=== PATIENT | female | born 1930 | race Caucasian/White ===

== ENCOUNTER 2018-08-21 14:40 | Outpatient (CLI) | payer MEDICARE, BC ==
[~2018-08-21] VITALS: Ht 157.5 cm; Wt 40.8 kg
[2018-08-21 14:44] VITALS: BP 133/77
== END 2018-08-21 23:59 | disposition home or self-care (01) ==
LOC: MSC 14:40
PROVIDERS: ATTEND Internal Medicine
DX: S72.001D Fracture of unspecified part of neck of right femur, subsequent encounter for closed fracture with routine healing (principal); X58.XXXD Exposure to other specified factors, subsequent encounter; F03.90 Unspecified dementia, unspecified severity, without behavioral disturbance, psychotic disturbance, mood disturbance, and anxiety; M85.80 Other specified disorders of bone density and structure, unspecified site; I69.954 Hemiplegia and hemiparesis following unspecified cerebrovascular disease affecting left non-dominant side; Z79.82 Long term (current) use of aspirin; I10 Essential (primary) hypertension; Z96.649 Presence of unspecified artificial hip joint

== ENCOUNTER 2019-05-26 13:06 | Outpatient (CLI) | payer MEDICARE, BC | END 2019-05-26 23:59 | disposition home or self-care (01) | LOC: MSC 13:06 | PROVIDERS: ATTEND Internal Medicine | DX: R05 Cough (principal); S72.001D Fracture of unspecified part of neck of right femur, subsequent encounter for closed fracture with routine healing; F03.90 Unspecified dementia, unspecified severity, without behavioral disturbance, psychotic disturbance, mood disturbance, and anxiety; M85.80 Other specified disorders of bone density and structure, unspecified site; I69.854 Hemiplegia and hemiparesis following other cerebrovascular disease affecting left non-dominant side; I69.892 Facial weakness following other cerebrovascular disease; I10 Essential (primary) hypertension ==

== ENCOUNTER 2020-03-10 16:05 | Outpatient (CLI) | payer MEDICARE, BC | END 2020-03-10 23:59 | disposition home or self-care (01) | LOC: MSC 16:05 | PROVIDERS: ATTEND Internal Medicine | DX: R05 Cough (principal); Z20.828 Contact with and (suspected) exposure to other viral communicable diseases; F03.90 Unspecified dementia, unspecified severity, without behavioral disturbance, psychotic disturbance, mood disturbance, and anxiety; M85.80 Other specified disorders of bone density and structure, unspecified site; I69.354 Hemiplegia and hemiparesis following cerebral infarction affecting left non-dominant side; I10 Essential (primary) hypertension; Z96.641 Presence of right artificial hip joint; Z79.899 Other long term (current) drug therapy ==